=== PATIENT | male | born 1965 | race Two or more races ===

== ENCOUNTER 2017-08-07 14:17 | Emergency (ER) | payer OTHER ==
[~2017-08-07] VITALS: Ht 152.4 cm; Wt 59.0 kg
[~2017-08-07 14:17] MED LIST: ASPIR 8181 MG; ATENOLOL100 MG; ATENOLOL25 MG PO; ATENOLOL50 MG PO; CALAN80 MG; CELEBREX100 MG PO; DRAMAMINE LESS25 MG PO; ENALAPRIL MALEA20 MG; HYZAAR 50-12.1 UDTAB; NORFLEX100 MG PO; ORPH100T PO; PLAVIX75 MG PO; PRILOSEC40 MG; SINGULAIR10 MG; SKELAXIN800 MG PO; TENORMIN50 MG PO; TOPROL XL25 MG PO; TORADOL10 MG PO; VASOTEC5 MG PO
[2017-08-07] MEDS ORDERED: ZOCOR5 MG (14:57)
[2017-08-07] MEDS ORDERED: TENORMIN25 MG (14:57)
== END 2017-08-07 20:36 | disposition home or self-care (01) ==
LOC: ER 14:17
DX: R11.11 Vomiting without nausea (principal)

== ENCOUNTER 2017-10-13 08:01 | Emergency (ER) | payer OTHER ==
[~2017-10-13] VITALS: Ht 157.5 cm; Wt 59.0 kg
[~2017-10-13 08:01] MED LIST changes: +TENORMIN25 MG; +ZOCOR5 MG
[2017-10-13] MEDS ORDERED: DICLOFENAC POTA50 MG PO (10:26)
== END 2017-10-13 11:37 | disposition home or self-care (01) ==
LOC: ER 08:01
DX: S16.1XXA Strain of muscle, fascia and tendon at neck level, initial encounter (principal); S39.012A Strain of muscle, fascia and tendon of lower back, initial encounter; S66.811A Strain of other specified muscles, fascia and tendons at wrist and hand level, right hand, initial encounter; S86.811A Strain of other muscle(s) and tendon(s) at lower leg level, right leg, initial encounter; W01.0XXA Fall on same level from slipping, tripping and stumbling without subsequent striking against object, initial encounter; Y93.01 Activity, walking, marching and hiking; Y92.512 Supermarket, store or market as the place of occurrence of the external cause; Y99.8 Other external cause status

== ENCOUNTER 2018-01-05 08:08 | Outpatient (CLI) | payer OTHER ==
[~2018-01-05 08:08] MED LIST changes: +DICLOFENAC POTA50 MG PO
== END 2018-01-05 11:14 | disposition home or self-care (01) ==
LOC: MRI 08:08
DX: M54.2 Cervicalgia (principal); M54.12 Radiculopathy, cervical region
CPT/HCPCS: 72141

== ENCOUNTER 2018-03-02 08:19 | Outpatient (CLI) | payer OTHER | END 2018-03-02 08:32 | disposition home or self-care (01) | LOC: RAD 08:19 → LAB 08:19 → RAD 08:32 | DX: R10.9 Unspecified abdominal pain (principal); K40.90 Unilateral inguinal hernia, without obstruction or gangrene, not specified as recurrent; K42.9 Umbilical hernia without obstruction or gangrene ==

== ENCOUNTER → 2018-03-17 | Day surgery (SDC) | payer OTHER ==
[~2018-03-17] MED LIST changes: +MIRALAX17 GM PO; +NEURONTIN300 MG PO; +PERCOCET 5-3251 EACH PO
== END | disposition home or self-care (01) ==
LOC: ADM 03-10 08:00 → CIR.AMB 07:00
DX: K40.90 Unilateral inguinal hernia, without obstruction or gangrene, not specified as recurrent (principal); K42.0 Umbilical hernia with obstruction, without gangrene

== ENCOUNTER → 2019-03-07 | Emergency (ER) | payer OTHER ==
[~2019-03-07] VITALS: Ht 157.5 cm; Wt 61.2 kg
== END | disposition left against medical advice (07) ==
LOC: ER 18:19
DX: Z53.20 Procedure and treatment not carried out because of patient's decision for unspecified reasons (principal)

== ENCOUNTER 2019-04-09 07:10 | Emergency (ER) | payer OTHER ==
[~2019-04-09] VITALS: Ht 162.6 cm; Wt 63.5 kg
[2019-04-11] MEDS ORDERED: DUI500 PO (13:52)
[2019-04-11] MEDS ORDERED: KETOROLAC TROME10 MG PO (13:52)
== END 2019-04-09 10:00 | disposition home or self-care (01) ==
LOC: ER 07:10
DX: K52.89 Other specified noninfective gastroenteritis and colitis (principal); R11.11 Vomiting without nausea; S20.211A Contusion of right front wall of thorax, initial encounter; Y04.2XXA Assault by strike against or bumped into by another person, initial encounter; Y93.89 Activity, other specified; Y92.89 Other specified places as the place of occurrence of the external cause; Y99.8 Other external cause status

== ENCOUNTER → 2019-04-11 | Emergency (ER) | payer OTHER ==
[~2019-04-11] VITALS: Ht 165.1 cm; Wt 63.5 kg
[~2019-04-11] MED LIST changes: +DUI500 PO; +KETOROLAC TROME10 MG PO
== END | disposition home or self-care (01) ==
LOC: ER 11:23
DX: S61.412A Laceration without foreign body of left hand, initial encounter (principal); S61.411A Laceration without foreign body of right hand, initial encounter; S90.31XA Contusion of right foot, initial encounter; Y08.89XA Assault by other specified means, initial encounter; Y93.89 Activity, other specified; Y92.89 Other specified places as the place of occurrence of the external cause; Y99.8 Other external cause status

== ENCOUNTER 2022-01-27 10:20 | Outpatient (CLI) | payer OTHER | END 2022-01-27 10:34 | disposition home or self-care (01) | LOC: TOM 10:20 | DX: R93.5 Abnormal findings on diagnostic imaging of other abdominal regions, including retroperitoneum (principal) ==

== ENCOUNTER 2024-04-19 13:55 | Outpatient (CLI) | payer OTHER | END 2024-04-19 14:03 | disposition home or self-care (01) | LOC: RAD 13:55 | PROVIDERS: ATTEND Orthopaedic Surgery | DX: M25.551 Pain in right hip (principal); M25.561 Pain in right knee ==

== ENCOUNTER 2024-09-17 08:39 | Emergency (ER) | payer OTHER ==
[~2024-09-17] VITALS: Ht 162.6 cm; Wt 68.0 kg
[2024-09-17] MEDS ORDERED: ECOTRIN81 MG PO (08:58)
[2024-09-17] MEDS ORDERED: AMLODIPINE-OLM1 EAC2 PO (08:58)
[2024-09-17] MEDS ORDERED: AMLODIPINE BESYL5 MG PO (08:59)
[2024-09-17] MEDS ORDERED: COZAAR50 MG PO (08:59)
[2024-09-17] MEDS ORDERED: JARDIANCE10 MG PO (08:59)
[2024-09-17] MEDS ORDERED: TOPROL XL25 M1 PO (09:00)
[2024-09-17] MEDS ORDERED: ACID REDUCER20 M1 PO (09:00)
[2024-09-17] MEDS ORDERED: LIPITOR40 M1 PO (09:01)
[2024-09-17 09:42] LABS: HEMOGLOBIN 15.7 g/dL (13-16.00); MEAN CELL VOLUME 90.8 fL (80.0-100.00); MEAN CORPUSCULAR HEMOGLOBIN 31.7 pg (27.00-32.0); MEAN CORPUSCULAR HGB CONC 34.9 g/dl (32.0-36.0); PLATELET COUNT 242 K/uL (150-450); RED BLOOD COUNT 4.95 M/uL (4.00-6.00); RED CELL DISTRIBUTION WIDTH 13.9 % (11.5-14.5)
[2024-09-17] MEDS ORDERED: HYDROCODONE/CHLORPHEN P-STIREX 5 ML ML PO STA (11:24)
== END 2024-09-17 11:51 | disposition home or self-care (01) ==
LOC: ER 08:41
PROVIDERS: General Practice
DX: R05.8 Other specified cough (principal); Z95.1 Presence of aortocoronary bypass graft; E78.00 Pure hypercholesterolemia, unspecified; I10 Essential (primary) hypertension; I20.89 Other forms of angina pectoris; Z20.822 Contact with and (suspected) exposure to COVID-19

== ENCOUNTER 2024-12-22 09:06 | Emergency (ER) | payer OTHER ==
[~2024-12-22] VITALS: Ht 165.1 cm; Wt 72.6 kg
[~2024-12-22 09:06] MED LIST changes: +ACID REDUCER20 M1 PO; +AMLODIPINE BESYL5 MG PO; +AMLODIPINE-OLM1 EAC2 PO; +COZAAR50 MG PO; +ECOTRIN81 MG PO; +JARDIANCE10 MG PO; +LIPITOR40 M1 PO; +TOPROL XL25 M1 PO
[2024-12-22 09:39] VITALS: BP 119/75; O2SAT 98
[2024-12-22] MEDS ORDERED: KETOROLAC TROMETHAMINE 60 MG VIAL IM STA (10:18)
== END 2024-12-22 13:44 | disposition home or self-care (01) ==
LOC: ER 09:06
DX: M77.11 Lateral epicondylitis, right elbow (principal)

== ENCOUNTER 2025-01-11 11:30 | Outpatient (CLI) | payer OTHER | END 2025-01-11 11:35 | disposition home or self-care (01) | LOC: SONOGRAMA 11:30 | PROVIDERS: ATTEND Family Medicine | DX: G89.11 Acute pain due to trauma (principal); M25.521 Pain in right elbow; M67.321 Transient synovitis, right elbow ==

== ENCOUNTER 2025-04-14 11:09 | Emergency (ER) | payer OTHER ==
[~2025-04-14] VITALS: Ht 167.6 cm; Wt 77.1 kg
[2025-04-14] MEDS ORDERED: KETOROLAC TROMETHAMINE 60 MG VIAL IM ONE (14:00)
[2025-04-14] MEDS ORDERED: ORPHENADRINE CITRATE 30 MG/ML AMPUL IM ONE (14:00)
== END 2025-04-14 15:24 | disposition home or self-care (01) ==
LOC: ER 11:09
DX: G89.11 Acute pain due to trauma (principal); M62.838 Other muscle spasm; T07.XXXA Unspecified multiple injuries, initial encounter; I10 Essential (primary) hypertension

== ENCOUNTER 2025-05-03 07:29 | Emergency (ER) | payer OTHER ==
[~2025-05-03] VITALS: Ht 167.6 cm; Wt 68.0 kg
[~2025-05-03 07:29] MED LIST changes: +ADULT LOW DOSE81 M1 PO; +LOSARTAN POTASS25 MG PO; +PRILOSEC OTC20 MG PO
[2025-05-03] MEDS ORDERED: GUAIFEN/DEXTROMETHORPHAN/PE 10 ML BLIST.PACK PO ONE ×2 (09:15→09:31)
[2025-05-03] MEDS ORDERED: ACETAMINOPHEN 500 MG GEL..CAP PO ONE ×2 (09:15→09:31)
[2025-05-03 09:53] LABS: BASO % 0.3 % (0.1-1.2); EOS # 0.03 (0.04-0.54); EOS % 0.2 % (0.7-7.0); LYMPH # 1.53 (1.18-3.74); LYMPH % 12.1 % (19.3-53.1); MEAN PLATELET VOLUME 9.30 fl (9.4-12.4); MONO # 0.66 (0.24-0.82); MONO % 5.2 % (4.7-12.5); NEUT # 10.36 (1.56-6.13); NEUT % 82.0 % (34.0-71.1); RED CELL DISTRIBUTION WIDTH 12.6 % (11.6-14.4)
[2025-05-03 10:31] LABS: COVID-19 AG NEGATIVE (NEGATIVE)
[2025-05-03] MEDS ORDERED: MUCINEX1200 MG PO (10:58)
[2025-05-03] MEDS ORDERED: ZOFRAN8 MG PO (10:58)
[2025-05-03] MEDS ORDERED: ZITHROMAX500 MG PO (10:58)
== END 2025-05-03 11:25 | disposition home or self-care (01) ==
LOC: ER 07:29
PROVIDERS: General Practice
DX: B34.9 Viral infection, unspecified (principal); Z20.822 Contact with and (suspected) exposure to COVID-19